=== PATIENT | male | born 1985 | race Caucasian/White ===

== ENCOUNTER 2022-03-20 17:02 | Emergency (ER) | payer BC, SELFPAY ==
--- NOTE | 2022-03-20 19:14 | ED.NURSE ---
Left without being seen, signed refusal of services form. Leaves ED ambulatory, tolerates well.
== END 2022-03-20 19:19 | disposition left against medical advice (07) ==
DX: Z53.21 Procedure and treatment not carried out due to patient leaving prior to being seen by health care provider (principal)
CPT/HCPCS: 99281